=== PATIENT | male | born 1950 | race Caucasian/White ===

== ENCOUNTER 2022-06-13 13:54 | Outpatient (CLI) | payer MEDICARE, BC, SELFPAY ==
[2022-06-13 17:34] LABS: Albumin* 4.8 g/dL (3.3-5.0); Chloride* 91 mmol/L (96-114); Potassium* 4.9 mmol/L (3.6-5.1); Sodium* 130 mmol/L (135-149)
[2022-06-13 17:36] LABS: Cholesterol* 173 mg/dL (90-199)
[2022-06-13 17:37] LABS: Alanine Aminotransferase* 54 U/L (4-50); Alkaline Phosphatase* 75 U/L (40-150); Aspartate Amino Transferase* 40 U/L (12-35); Bilirubin Total* 0.8 mg/dL (0.1-1.5); Blood Urea Nitrogen* 18 mg/dL (7-30); Carbon Dioxide* 30 mmol/L (20-32); Creatinine* 0.9 mg/dL (0.5-1.5); Estimated Glomerular Filt Rate 92 ml/min; Glucose* 105 mg/dL (60-115); Total Protein* 7.8 g/dL (6.0-8.3); Triglycerides* 152 mg/dL (40-149)
[2022-06-13 17:38] LABS: Calcium* 9.5 mg/dL (8.4-10.6); HDL Cholesterol* 69 mg/dL (>=40); LDL Cholesterol Calculated 74 mg/dL (<100)
[2022-06-13 18:08] LABS: PSA Screen* 1.05 ng/mL (0.10-4.00)
== END 2022-06-13 13:55 | disposition home or self-care (01) ==
PROVIDERS: PCP Family Medicine; Visit Provider Family Medicine
DX: Z79.899 Other long term (current) drug therapy (principal); Z00.00 Encounter for general adult medical examination without abnormal findings; E78.5 Hyperlipidemia, unspecified; I10 Essential (primary) hypertension; D12.6 Benign neoplasm of colon, unspecified; Z12.5 Encounter for screening for malignant neoplasm of prostate
CPT/HCPCS: 80053; 80061; 84153

== ENCOUNTER 2022-07-18 09:12 | Outpatient (CLI) | payer MEDICARE, BC, SELFPAY ==
[2022-07-18 10:52] LABS: Chloride* 98 mmol/L (96-114); Sodium* 134 mmol/L (135-149)
[2022-07-18 10:55] LABS: Blood Urea Nitrogen* 15 mg/dL (7-30); Calcium* 9.9 mg/dL (8.4-10.6); Carbon Dioxide* 26 mmol/L (20-32); Creatinine* 0.8 mg/dL (0.5-1.5); Estimated Glomerular Filt Rate 95 ml/min; Glucose* 114 mg/dL (60-115)
== END 2022-07-18 09:13 | disposition home or self-care (01) ==
PROVIDERS: PCP Family Medicine; Visit Provider Family Medicine
DX: E87.1 Hypo-osmolality and hyponatremia (principal); I10 Essential (primary) hypertension
CPT/HCPCS: 80048

== ENCOUNTER 2022-08-10 09:08 | Outpatient (CLI) | payer MEDICARE, BC, SELFPAY ==
--- OUTSIDE RECORDS SUMMARY | 2022-08-10 09:09 | XMS_ITS | Encounter Summary ---
:1950 Author Organization [facility] Address [address] [place] [address] Care Team Providers Name Role Phone Unavailable Primary Care Provider Unavailable Encounter Details Date Type Department Care Team Description 12/23/2020 Orders Only [facility] Estuardo Sinha Jr., M.D. [address] [place] [address] [place], [place] [phone] (Wo rk) Social History Tobacco Use Types Packs/Day Years Used Date Smoking Tobacco: Former Smokeless Tobacco: Former Alcohol Use Standard Drinks/Week Comments Yes 0 (1 standard drink = 0.6 oz pure alcoho l) Sex Assigned at Date Recorded Not on file documented as of this encounter Plan of Treatment Not on filedocumented as of this encounter Visit Diagnoses Not on filedocumented in this encounter
--- OUTSIDE RECORDS SUMMARY | 2022-08-10 09:09 | XMS_ITS | Clinical Summary ---
:1950 Author Organization [facility] Address [address] [place] [address] Care Team Providers Name Role Phone Unavailable Primary Care Provider Unavailable Source Comments Patient records contain information from all sites at [facility]. For routine questions regarding patient records, call [phone] during business hours, M-F 8:00 AM - 5:00 PM Central Time. Record requests for emergency care only can be directed to [phone] at any time.[facility] Allergies No known active allergies Medications Medication Sig Dispensed Refills Start Date End Date Status tadalafiL (CIALIS, Take 20 mg by 0 Active ADCIRCA) 20 mg tablet mouth daily as needed for erectile dysfunction. lisinopriL Take 20 mg by 0 Activ e (PRINIVIL,ZESTRIL) 20 mouth 2 (two) mg tablet times a day. atorvastatin (LIPITOR) Take 20 mg by 0 Active 20 mg tablet mouth at bedtime. sertraline (ZOLOFT) 50 Take 50 mg by 0 Active mg tablet mouth daily. omeprazole (PriLOSEC) Take 20 mg by [address] capsule mouth every morning before breakfast. aspirin [address] Take 81 mg by 0 Active tablet mouth daily. Social History Tobacco Use Types Packs/Day Years Used Date Smoking Tobacco: Former Smokeless Tobacco: Former Alcohol Use Standard Drinks/Week Comments Yes 0 (1 standard drink = 0.6 oz pure alcoho l) Sex Assigned at Date Recorded Not on file Last Filed Vital Signs Vital Sign Reading Time Taken Comments Blood Pressure 145/85 08/11/2020 11:35 AM CDT Pulse 60 08/11/2020 11:35 AM CDT Temperature 36.4 ??C (97.5 ??F) 08/11/2020 10:09 AM CDT Respiratory Rate 12 08/11/2020 11:35 AM CDT Oxygen Saturation 97% 08/11/2020 11:35 AM CDT Inhaled Oxygen Concentration - - Weight 91.8 kg (202 lb 6.1 oz) 08/11/2020 9:56 AM CDT Height 179.8 cm (5' 10.8) 08/11/2020 9:56 AM CDT Body Mass Index 28.39 08/11/2020 9:56 AM CDT Plan of Treatment Health Maintenance Due Date Last Done Comments Abdominal Aortic Aneurysm (AAA) [address] Colonography 1950 Cologuard 1950 Colonoscopy 1950 Colorectal Cancer Screening 1950 Creatinine Level 1952 FIT 1950 Fasting Glucose for Diabetes 1950 Screening Hepatitis C Screening 1950 Potassium Level 1950 Sodium Level 1950 Zoster Vaccines (2 of 3) 08/26/2015 07/01/2015 DTaP,Tdap,and Td Vaccines (1 - 09/08/2017 09/07/2017, 06/16 Tdap) Depression Screening (Annual 10/23/2021 PHQ-2) Fall Risk Screen (Annual) 10/23/2021 COVID-19 Vaccine (5 - Booster for 05/03/2022 03/08/2022, , Pfizer series) 01/16/2021, Additional history exists Influenza Vaccine (#1) 2022 08/13/2021, 08/15/2020, 10/09/2019, Additional history exists Pneumococcal vaccine (65+ years) Completed 09/05/2018, Medical Devices Implanted Type Area Firer Retort Device Shelf Model / Serial Identifier Expiration / Lot Date Lens Ult [id number] Ant +18.0d - Sn/A - [id number] Ocular Left: John 04/08/2023 [id number] / Implanted: Qty: 1 on 07/28/2020 by Ena Sin M.D. at [facility] [employer] N/A / [id number] Lens Ult [id number] Ant +18.0d - Sn/A - [id number] Ocular Right: John 05/07/2023 [id number] / Implanted: Qty: 1 on 08/11/2020 by Ena Sin M.D. at [facility] [employer] N/A / [id number] 1 Insurance Payer Benefit Plan Subscriber ID Effective Phone Address Typ e / Group Dates MEDICARE MEDICARE A [id number] 2017-Pres [address] [place] [address] BLUE CROSS BCBS [employer] [id number] 2020-Pres [phone] [address] X Cost Share BLUE SHIELD BLUE COST ent [phone] [place] [address] Advance Directives For more information, please contact: [phone] Latest Code Status on File Code Status Date Activated Date Inactivated Comments Full Code 08/11/2020 11:32 AM 08/13/2020 2:08 AM Question Answer Comments Full Code: Discussed Code Status History Code Status Date Activated Date Inactivated Comments Full Code 08/11/2020 10:02 AM 08/11/2020 11:32 AM Question Answer Comments Full Code: Discussed Full Code 07/28/2020 12:01 PM 07/28/2020 2:22 PM Question Answer Comments Full Code: Discussed
--- OUTSIDE RECORDS SUMMARY | 2022-08-10 09:09 | XMS_ITS | Encounter Summary ---
:1950 Author Organization [facility] Address [address] [place] [address] Care Team Providers Name Role Phone Unavailable Primary Care Provider Unavailable Encounter Details Date Type Department Care Team Description 07/19/2021 Orders Only [facility] Rehan King, eJnniferOTacos [address] [place] [address] (Wo rk) Social History Tobacco Use Types [...]
--- OUTSIDE RECORDS SUMMARY | 2022-08-10 09:10 | XMS_ITS | Encounter Summary ---
:1950 Author Organization [facility] Address [address] [place] [address] Care Team Providers Name Role Phone Unavailable Primary Care Provider Unavailable Encounter Details Date Type Department Care Team Description 07/28/2020 Surgery [facility] OR Ena Gilbert PHACOEMULSIFICATION CATARACT [address] M[address] WITH INTRAOCULAR LENS [place], [place] [address] IMPLANTATION [address] [place], [place] [phone] [address] Social History Tobacco Use Types Packs/Day Years Used Date Smoking Tobacco: Former Smokeless Tobacco: Former Alcohol Use Standard Drinks/Week Comments Yes 0 (1 standard drink = 0.6 oz pure alcoho l) Sex Assigned at Date Recorded Not on file documented as of this encounter Last Filed Vital Signs Vital Sign Reading Time Taken Comments Blood Pressure 147/77 07/28/2020 12:10 PM CDT Pulse 56 07/28/2020 12:15 PM CDT Temperature 36 ??C (96.8 ??F) 07/28/2020 12:06 PM CDT Respiratory Rate 20 07/28/2020 12:15 PM CDT Oxygen Saturation 97% 07/28/2020 12:15 PM CDT Inhaled Oxygen Concentration - - Weight 89.9 kg (198 lb 3.1 oz) 07/28/2020 10:17 AM CDT Height - - Body Mass Index - - documented in this encounter Discharge Instructions Discharge InstructionsMathew Da Silva R.N. - 07/28/2020 10:44 AM CDT Images from the original note were not included. Cataract Surgery ?? No lifting, bending, straining or eye rubbing. Keep head up. ?? If you should develop severe eye pain or headache pain call your doctor. ?? Give drops today as directed by physician. (all 3 drops today, 3 more times) [facility] [phone] Anesthesia Discharge Instructions Adult - Outpatient After sedation After you have been sedated, it is common to have lapses of memory, slowed reaction time and impaired judgment. Arrange for someone to accompany you to and from your appointment and drive you home. Youmay need this person to help you at home as well. ?? Rest. ?? Do not drive or operate motorized vehicles or equipment. ?? Do not return to work or school. ?? Do not take on responsibility for children or anyone who depends on your care. ?? Do not use exercise equipment or take part in rough play or sports. ?? Do not drink alcoholic beverages. Medication Do not take any medications that are unknown to your surgeon. If your pain is not controlled, notifyyour surgeon. In addition, because you were given: ?? Monitored anesthesia care (MAC) with local..you may have: Numbness in the affected area. Until the numbness wears off, you will not be able to feel heat, cold, or pressure like normal. Protect the extremity from these sensations. Notify your physician if you have numbness or tingling that lasts longer than 24 hours. This material is for your education and information only. This content does not replace medical advice, diagnosis or treatment. New medical research may change this information. If you have questions about a medical condition, always talk with your health care provider. documented in this encounter Medications at Time of Discharge Medication Sig Dispensed Refills Start Date End Date aspirin [address] tablet Take 81 mg by mouth 0 daily. atorvastatin (LIPITOR) 20 Take 20 mg by mouth 0 mg tablet at bedtime. lisinopriL Take 20 mg by mouth 2 0 (PRINIVIL,ZESTRIL) 20 mg (two) times a day. tablet omeprazole (PriLOSEC) 20 Take 20 mg by mouth [address] capsule every morning before breakfast. sertraline (ZOLOFT) 50 mg Take 50 mg by mouth 0 tablet daily. tadalafiL (CIALIS, Take 20 mg by mouth 0 ADCIRCA) 20 mg tablet daily as needed for erectile dysfunction. documented as of this encounter H&P Notes Ena Gilbert M.D. - 07/28/2020 10:54 AM CDT INTERVAL HISTORY AND PHYSICAL PRE-PROCEDURE UPDATE H&P reviewed. The patient was examined and there are no significant changes to the H&P. Ena Gilbert M.D. Source Note - Timothy, Default Authenticator - 07/24/2020 10:27 AM CDT documented in this encounter OR Notes Op Note - Ena Gilbert M.D. - 07/28/2020 11:49 AM CDT FULL OP NOTE Procedure(s) (LRB): PHACOEMULSIFICATION CATARACT WITH INTRAOCULAR LENS IMPLANTATION (Left) Surgeon(s) and Role: * Ena Gilbert M.D. - Primary Anesthesia Type Moderate sedation (rn) Pre-operative Diagnosis Cataract Visually significant nuclear sclerotic cataract of the left eye Post-operative Diagnosis Pseudophakia, Left eye Findings As expected. Complications None Description of Procedure After informed written consent was obtained, the patient was brought into the operating room and placed in the supine position. The appropriate leads and monitors were placed by the anesthesia team andmonitored anesthesia care was induced. Tetracaine was instilled into the operative eye, and the patient was then prepped and draped in the usual sterile fashion. A time-out was performed to ensure the correct patient and eye were confirmed by all present in the operating room. An eyelid speculum was placed. Using a 1.0 mm sideport blade, a paracentesis was performed 60 degrees temporal to the planned temporal incision. Approximately 0.5 cc of 1% preservative free epi-Shugarcaine was then injected into the anterior chamber. A cohesive and dispersive viscoelastic were injected into the anterior chamber using an Arshinoff shell technique. A 2.75 mm keratome was then used to make the temporal incision. A cystotome and uttrata forceps were used to create a continuous curvilinear capsulorrhexis. Hydrodissection was performed to free the nucleus from the capsule and the nucleusrotated freely within the capsule. Using a chopping technique, phacoemulsification was performed to e mulsify the nucleus. The irrigation/aspiration handpiece was then used to remove the remaining cortical material. Using a peg squeegee, the capsular bag was polished. The bag was then filled with viscoelastic and the intraocular lens was injected into the capsule and rotated into position. The irrigation/aspiration handpiece was then used to remove the remaining viscoelastic. The wound was hydratedwith balanced salt solution. 0.05 ml of moxifloxacin was injected into the anterior chamber. At the conclusion of the case the wound was watertight, the pupil was round, the IOL was centered and the anterior chamber was deep and formed. Antibiotic and steroid eye drops were placed in the operative eye, the lid speculum and drapes were removed, and a protective shield was taped over the operative eye.The patient then left the operating room in stable condition. Specimens None Drains None Estimated Blood Loss None Implants Implant Name Type Inv. Item Serial No. Nutrition Services Worker Lot No. LRB No. Used Action LENS ULT [id number] ANT +18.0D - SN/A - [id number] Ocular Lens LENS ULT [id number] ANT +18.0D N/A [employer] [id number] Left 1 Implanted Ena Gilbert M.D. documented in this encounter Plan of Treatment Not on filedocumented as of this encounter Procedures Procedure Name Priority Date/Time Associated Comments Diagnosis PHACOEMULSIFICATION CATARACT 07/28/2020 11:39 AM Catar act WITH INTRAOCULAR LENS CDT IMPLANTATION ADULT OXYGEN THERAPY Routine 07/28/2020 10:12 AM CDT documented in this encounter Visit Diagnoses Not on filedocumented in this encounter Administered Medications Inactive Administered Medications - up to 3 most recent administrations Medication Order MAR Action Action Date Dose Rate Site acetaminophen tablet 650 mg (TYLENOL) 650 mg, oral, Once as needed, mild pain or score 1-3 of 10, moderate pain or score 4-6 of 10, Starting on Mon07/28/20 at 1201, For 1 dose cyclopentolate 1 % ophthalmic solution 1 Given 07/28/2020 10:34 AM CDT 1 drop drop (CYCLOGYL) 1 drop, left eye, Every 5 min, First dose on Mon07/28/20 at 1015, For 3 doses, Pre-Op, in operative eye Given 07/28/2020 10:28 AM CDT 1 drop Given 07/28/2020 10:23 AM CDT 1 drop EPINEPHrine 0.5 mg in balanced salt Given 07/28/2020 11:55 AM CD T 500 mL Left Eye solution 500 mL ophthalmic irrigation As needed, Starting on Mon07/28/20 at 1155, Intra-Op flumazeniL injection 0.2 mg (ROMAZICON) 0.2 mg, intravenous, Once as needed, rev ersal, Starting on Mon07/28/20 at 1012, For 1 dose, Intra-Op, Administer once if pat ient has a RASS score of -4, -5 and has a respiratory rate less than 8 breaths/minute. lactated ringers 20 mL/hr, intravenous, Continuous, Starting on 04/11 at 1015, Intra-Op lidocaine (PF) 0.75 mL, balanced salt solution Given 1 11:56 AM CDT 1 mL 2.25 mL, EPINEPHrine (PF) 1 mL 4 mL solution (SHUGARCAINE) As needed, Starting on Mon07/28/20 at 1156, Intra-Op midazolam (PF) injection (VERSED) Given 07/28/2020 11:46 AM CDT 0.5 mg Code/trauma/sedation medication, Starting on Mon07/28/20 at 1146 midazolam (PF) injection 0.5 mg (VERSED) 0.5 mg, intravenous, Once as needed, sed ation, Starting on Mon07/28/20 at 1012, For 1 dose, Intra-Op midazolam (PF) injection 0.5 mg (VERSED) 0.5 mg, intravenous, Every 2 min PRN, se dation, RASS -1, Starting on Mon07/28/20 at 1012, Intra-Op, May repeat every 2 minut es for a maximum of 2 mg. Do not give if respiratory rate is less than 8 breaths/minute. moxifloxacin 0.5 % ophthalmic Given 07/28/2020 12:01 PM CDT 0.05 mL Left Eye solution (VIGAMOX) As needed, Starting on Mon07/28/20 at 1201, Intra-Op naloxone injection 0.2 mg (NARCAN) 0.2 mg, intravenous, As needed, respirat ory depression, Starting on Mon07/28/20 at 1201, For RASS Score -4 or less, respiratory rate of l ess than 8 breaths/min. Notify provider/service and rapid response team (if av ailable at institution). phenylephrine 2.5 % ophthalmic solution 1 Given 07/28/2020 10:34 AM CDT 1 drop drop (MYDFRIN) 1 drop, left eye, Every 5 min, First dose on Mon07/28/20 at 1015, For 3 doses, Pre-Op, in operative eye Given 07/28/2020 10:28 AM CDT 1 drop Given 07/28/2020 10:23 AM CDT 1 drop sodium chloride 0.9 % injection 10 mL 10 mL, intravenous, As needed, line care, Starting on Mon07/28/20 at 1012, Intra-Op, Peripheral Intravenous Catheter and Rapid In fusion Catheter, prior to blood sampling, post blood transfusion or post blood s ampling sodium chloride 0.9 % injection 3 mL 3 mL, intravenous, As needed, line care, Starting on Mon07/28/20 at 1012, Intra-Op, Prior to and following infusion and betw een multiple consecutive infusions: sodium chloride 0.9 % injection sodium chloride 0.9 % injection 3 mL 3 mL, intravenous, Every 12 hours scheduled, First dos e on Mon07/28/20 at 2100, Intra-Op, Peripheral Intravenous Catheter and Rapid In fusion Catheter, when no infusion to maintain patency tetracaine (PF) 0.5 % ophthalmic Given 07/28/2020 11:42 AM CDT 2 drops Left Eye solution (ALTACAINE) As needed, Starting on Mon07/28/20 at 1140, Intra-Op Given 07/28/2020 11:41 AM CDT 2 drops Left Eye Given 07/28/2020 11:40 AM CDT 2 drops Left Eye documented in this encounter Active and Recently Administered Medications Times are shown in CDT. Scheduled Medication Order 07/26/2020 07/27/2020 07/28/2020 cyclopentolate 1 % ophthalmic solution 1 drop (CYCLOGYL) ([facility]O) 1023 (Given - Provider: Puja Horan R.N.)1028 (Given - Provider: Puja Horan R.N.)1034 (Given - Provider: Puja Horan R.N.) 1 drop, left eye, Every 5 min, First dos e on Mon07/28/20 at 1015, For 3 doses, Pre-Op, in operative eye phenylephrine 2.5 % ophthalmic solution 1 drop (MYDFRIN) ([facility] SIL[facility]) 1023 (Given - Provider: Puja Horan R.N.)1028 (Given - Provider: Puja Horan R.N.)1034 (Given - Provider: Puja Horan R.N.) 1 drop, left eye, Every 5 min, First dos e on Mon07/28/20 at 1015, For 3 doses, Pre-Op, in operative eye sodium chloride 0.9 % injection 3 mL 3 mL, intravenous, Every 12 hours schedu led, First dose on Mon07/28/20 at 2100, Intra-Op, Peripheral Intravenous Catheter and Rapid Infusion Catheter, when no infusion to maintain patency Continuous Medication Order 07/26/2020 07/27/2020 07/28/2020 lactated ringers 1015 (Due) 20 mL/hr, intravenous, Continuous, Starting on Mon07/28/20 at 10 15, Intra-Op PRN Medication Order 07/26/2020 07/27/2020 07/28/2020 acetaminophen tablet 650 mg (TYLENOL) 650 mg, oral, Once as needed, mild pain or score 1-3 of 10, moderate pain or score 4-6 of 10, Starting on Mon07/28/20 at 1201, For 1 dose EPINEPHrine 0.5 mg in balanced salt solu tion 500 mL ophthalmic irrigation (CANCELED) 1155 (Given - Provid er: Ena Gilbert M.D.) As needed, Starting on Mon07/28/20 at 1155, Intra-Op flumazeniL injection 0.2 mg (ROMAZICON) 0.2 mg, intravenous, Once as needed, rev ersal, Starting on Mon07/28/20 at 1012, For 1 dose, Intra-Op, Administer once if patient has a RASS score of -4, -5 and has a respiratory rate less than 8 breaths/minute. lidocaine (PF) 0.75 mL, balanced salt so lution 2.25 mL, EPINEPHrine (PF) 1 mL 4 mL solution (SHUGARCAINE) (CANCELED) 115 6 (Given - Provider: Ena Gilbert M.D.) As needed, Starting on Mon07/28/20 at 1156, Intra-Op midazolam (PF) injection (VERSED) (COMPLETED) 1146 (Given - Provider: Gabby Shannon R.N.) Code/trauma/sedation medication, Starting on Mon07/28/20 at 1146 midazolam (PF) injection 0.5 mg (VERSED) 0.5 mg, intravenous, Once as needed, sed ation, Starting on Mon07/28/20 at 1012, For 1 dose, Intra-Op midazolam (PF) injection 0.5 mg (VERSED) 0.5 mg, intravenous, Every 2 min PRN, se dation, RASS -1, Starting on Mon07/28/20 at 1012, Intra-Op, May repeat every 2 minutes for a maximum of 2 mg. Do not give if respiratory rate is less than 8 breaths/minute. moxifloxacin 0.5 % ophthalmic solution (VIGAMOX) (CANCELED) 1201 (Given - Provider: Ena Gilbert M.D.) As needed, Starting on Mon07/28/20 at 1201, Intra-Op naloxone injection 0.2 mg (NARCAN) 0.2 mg, intravenous, As needed, respirat ory depression, Starting on Mon07/28/20 at 1201, For RASS Score -4 or less, respiratory rate of less than 8 breaths/min. Notify provider/service and rapid response team (if available at institution). sodium chloride 0.9 % injection 10 mL 10 mL, intravenous, As needed, line care , Starting on Mon07/28/20 at 1012, Intra-Op, Peripheral Intravenous Catheter and Rapid Infusion Catheter, prior to blood sampling, post blood transfusion or post blood sampling sodium chloride 0.9 % injection 3 mL 3 mL, intravenous, As needed, line care, Starting on Mon07/28/20 at 1012, Intra- Op, Prior to and following infusion and between multiple consecutive infusions: sodium chloride 0.9 % injection tetracaine (PF) 0.5 % ophthalmic solution (ALTACAINE) (CANCELED) 1140 (Given - Provider: Ena Gilbert M.D.)1141 (Given - Provider: Ena Gilbert M.D.)1142 (Given - Provider: Ena Gilbert M.D.) As needed, Starting on Mon07/28/20 at 1140, Intra-Op documented in this encounter
--- OUTSIDE RECORDS SUMMARY | 2022-08-10 09:10 | XMS_ITS | Encounter Summary ---
:1950 Author Organization [facility] Address [address] [place] [address] Care Team Providers Name Role Phone Unavailable Primary Care Provider Unavailable Encounter Details Date Type Department Care Team Description 08/08/2020 Hospital Encounter Department of Ena Gilbert For Laboratory Medicine, S, M.D. Screening For Other [facility], in [address] [facility] Viral Diseases [place], [place] (COVID-19) [address] [address] [place] [phone] [place], [place] (Work) [address] Social History Tobacco Use Types Packs/Day Years Used Date Smoking Tobacco: Former Smokeless Tobacco: Former Alcohol Use Standard Drinks/Week Comments Yes 0 (1 standard drink = 0.6 oz pure alcoho l) Sex Assigned at Date Recorded Not on file documented as of this encounter Medications at Time of Discharge [...] erectile dysfunction. documented as of this encounter Plan of Treatment Not on filedocumented as of this encounter Procedures Procedure Name Priority Date/Time Associated Diagnosis Comme nts SARS CORONAVIRUS-2 Routine 08/08/2020 9:41 AM Encounter For Re sults for this RNA, V CDT Screening For Other procedur e are in Viral Diseases the results (COVID-19) section. documented in this encounter Results SARS Coronavirus-2 RNA, V Asymptomatic (08/08/2020 9:41 AM CDT) [facility] Method Time Signature SARS-CoV-2 Swab, 08/08/2020 [facility] Specimen Nasopharynx 6:36 PM CDT Source SARS CoV-2 Undetected Undetected 08/08/2020 [facility] RNA, TMA 6:36 PM CDT Comment: SARS-CoV-2 RNA absent. This result does not rule out COVID-19 in the patient, as the sensitivity of the test depends o n the timing of the specimen collection and the quality of the specim en. Result should be correlated with patient's history and clinical presentat ion. ----ADDITIONAL INFORMATION---- This test is performed using the Aptima SARS-CoV-2 assay ([employer] which has received Emergency Use Authori zation (EUA) by the U.S. Food and Drug Administration. Fact sheets for this Emergency Use Autho rization (EUA) assay can be found at the following links: For Healthcare Providers: https://www.fd a.gov/media/364830/download For Patients: https://www.fda.gov/media/ 273281/download Specimen Anatomical Collection Method Collection Time Receive d Time (Source) Location / / Volume Laterality Varies 08/08/2020 9:41 AM 0 (Nasopharynx) CDT 12:20 PM CDT Ena Gilbert M.D. LAB MICROBIOLOGY - GENERAL O RDERABLES Performing Organization Address City/State/ZIP Code Phon e Number [facility]- [address] [place] [phone] [place] [address] [place] [address] System in [address] documented in this encounter Visit Diagnoses Diagnosis Encounter For Screening For Other Viral Diseases (COVID-19) documented in this encounter Additional Health Concerns Infection Onset Date Last Indicated Resolved Time COVID19 Pending 08/08/2020 08/08/2020 08/08/2020 6:37 PM CDT documented as of this encounter
--- OUTSIDE RECORDS SUMMARY | 2022-08-10 09:10 | XMS_ITS | Encounter Summary ---
:1950 Author Organization [facility] Address [address] [place] [address] Care Team Providers Name Role Phone Unavailable Primary Care Provider Unavailable Encounter Details Date Type Department Care Team Description 07/28/2020 Hospital Encounter [facility] OR Ena Gilbert, [address] [facility] [place] [address] [facility] [phone] [place] [phone] (Wo rk) Social History Tobacco Use Types [...] today, 3 more times) [facility] [phone] Anesthesia Discharge Instructions Adult - Outpatient After [...] Implant Name Type Inv. Item Serial No. Eyelet Operator Lot No. LRB No. Used Action LENS ULT [id number] ANT +18.0D - SN/A - [id number] Ocular Lens LENS ULT [id number] ANT +18.0D N/A [employer] [id number] Left 1 Implanted Ena Gilbert M.D. documented [...] Given 07/28/2020 10:23 AM CDT 1 drop flumazeniL injection 0.2 mg (ROMAZICON) 0.2 mg, intravenous, Once as needed, rev ersal, Starting on Mon07/28/20 at 1012, For 1 dose, Intra-Op, Administer once if pat ient has a RASS score of -4, -5 and has a respiratory rate less than 8 breaths/minute. lactated ringers 20 mL/hr, intravenous, Continuous, Starting on 04/11 at 1015, Intra-Op midazolam (PF) injection (VERSED) Given 07/28/2020 [...] respiratory rate is less than 8 breaths/minute. naloxone injection 0.2 mg (NARCAN) 0.2 mg, [...] intravenous, As needed, line care, Starting on 07/28/20 at 1012, Intra-Op, Peripheral Intravenous Catheter and [...] Catheter, when no infusion to maintain patency documented in this encounter Active and Recently Administered Medications Times are shown in CDT. Scheduled Medication Order 07/26/2020 07/27/2020 07/28/2020 cyclopentolate 1 % ophthalmic solution 1 drop (CYCLOGYL) (COMPLE SILVANO) 1023 (Given - Provider: Puja Horan R.N.)1028 (Given - Provider: Puja Horan R.N.)1034 (Given - Provider: Puja Horan R.N.) 1 drop, left eye, Every 5 min, First dos e on 07/28/20 at 1015, For 3 doses, Pre-Op, in operative eye phenylephrine 2.5 % ophthalmic solution 1 drop (MYDFRIN) (COMPLE SILVANO) 1023 (Given - Provider: Puja Horan R.N.)1028 (Given - Provider: Puja Horan R.N.)1034 (Given - Provider: Puja Horan R.N.) 1 drop, left eye, Every 5 min, First dos e on 07/28/20 at 1015, For 3 doses, Pre-Op, in [...]
--- OUTSIDE RECORDS SUMMARY | 2022-08-10 09:10 | XMS_ITS | Encounter Summary ---
:1950 Author Organization [facility] Address [address] [place] [address] Care Team Providers Name Role Phone Unavailable Primary Care Provider Unavailable Encounter Details Date Type Department Care Team Description 08/11/2020 Surgery [facility] Ena Gilbert PHACOEMULSIFICATION CATARACT [address] M[address]D. WITH INTRAOCULAR LENS [place], [place] [address] IMPLANTATION [id number] [place], [place] [phone] [address] Social History Tobacco Use Types Packs/Day [...] Mass Index 28.39 08/11/2020 9:56 AM CDT documented in this encounter Discharge Instructions Discharge InstructionsCindy Sweet R.N. - 08/11/2020 11:37 AM CDT Images from the original note were not included. Caring for your Eye Please administer 1 drop from your combination prescription eye drop bottle 3 more times today. Keep shield on at all times during the day and overnight except for when administering the eye drops Do not rub the eye. Avoid heavy lifting (>15 pounds), bending at the waist (keep your head above your heart), or straining (anything that elevates your heart rate or turns you red in the face). Call [facility] ([phone]) with severe pain or loss of vision. Follow up tomorrow morning as scheduled for your first post operative appointment Anesthesia Discharge Instructions Adult - Outpatient After [...] your pain is not controlled, notifyyour surgeon. This material is for your education and information only. This content does not replace medical advice, diagnosis or treatment. New medical research may change this information. If you have questions about a medical condition, always talk with your health care provider. documented in this encounter Medications at Time of Discharge Medication Sig Dispensed Refills Start Date End Date atorvastatin (LIPITOR) 20 Take 20 mg by mouth 0 mg tablet at bedtime. lisinopriL Take 20 mg by mouth 2 0 (PRINIVIL,ZESTRIL) 20 mg (two) times a day. tablet omeprazole (PriLOSEC) 20 Take 20 mg by mouth [address] capsule every morning before breakfast. sertraline (ZOLOFT) 50 mg Take 50 mg by mouth 0 tablet daily. aspirin [address] tablet Take 81 mg by mouth 0 daily. tadalafiL (CIALIS, Take 20 mg by mouth 0 ADCIRCA) 20 mg tablet daily as needed for erectile dysfunction. documented as of this encounter H&P Notes Ena Gilbert M.D. - 08/11/2020 10:35 AM CDT INTERVAL HISTORY AND PHYSICAL PRE-PROCEDURE UPDATE H&P reviewed. The patient was examined and there are no significant changes to the H&P. Ena Gilbert M.D. Source Note - Timothy, Default Authenticator - 07/24/2020 10:27 AM CDT documented in this encounter OR Notes Op Note - Ena Gilbert M.D. - 08/11/2020 11:19 AM CDT FULL OP NOTE Procedure(s) (LRB): PHACOEMULSIFICATION CATARACT WITH INTRAOCULAR LENS IMPLANTATION (Right) Surgeon(s) and Role: * Ena Gilbert M.D. - Primary Anesthesia Type Moderate sedation (rn) Pre-operative Diagnosis Visually significant nuclear sclerotic cataract of the right eye Post-operative Diagnosis Pseudophakia, right eye Findings As expected. Complications None Description [...] Implant Name Type Inv. Item Serial No. Diesel Mechanic Lot No. LRB No. Used Action LENS ULT [id number] ANT +18.0D - SN/A - [id number] Ocular Lens LENS ULT [id number] ANT +18.0D N/A [employer] [id number] Right 1 Implanted Ena Gilbert M.D. documented in this encounter Plan of Treatment Not on filedocumented as of this encounter Procedures Procedure Name Priority Date/Time Associated Comments Diagnosis PHACOEMULSIFICATION CATARACT 08/11/2020 11:10 AM Catar act WITH INTRAOCULAR LENS CDT IMPLANTATION ADULT OXYGEN THERAPY Routine 08/11/2020 10:02 AM CDT documented in this encounter Visit Diagnoses Not on filedocumented in this encounter Administered Medications Inactive Administered Medications - up to 3 most recent administrations Medication Order MAR Action Action Date Dose Rate Site acetaminophen tablet 650 mg (TYLENOL) 650 mg, oral, Once as needed, mild pain or score 1-3 of 10, moderate pain or score 4-6 of 10, Starting on Mon08/11/20 at 1131, For 1 dos e cyclopentolate 1 % ophthalmic solution 1 Given 08/11/2020 10:22 AM CDT 1 drop drop (CYCLOGYL) 1 drop, right eye, Every 5 min, First dose on Mon08/11/20 at 1015, For 3 doses, Pre-Op, in operative eye, Indications: perioperative mydriasis Given 08/11/2020 10:16 AM CDT 1 drop Given 08/11/2020 10:11 AM CDT 1 drop EPINEPHrine 0.5 mg in balanced salt Given 08/11/2020 11:20 AM CD T 500 mL Right Eye solution 500 mL ophthalmic irrigation As needed, Starting on Mon08/11/20 at 1120, Intra-Op flumazeniL injection 0.2 mg (ROMAZICON) 0.2 mg, intravenous, Once as needed, rev ersal, Starting on Mon08/11/20 at 1002, For 1 dose, Intra-Op, Administer once if patient has a RASS score of -4, -5 and has a respiratory rate less than 8 breaths/minute. lactated ringers New Bag 08/11/2020 10:22 AM CDT 20 mL/hr 20 mL/hr 20 mL/hr, intravenous, Continuous, Starting on Mon08/11/20 at 1015, Intra-Op lidocaine (PF) 0.75 mL, balanced salt Given 08/11/2020 11:20 AM CDT 1 mL Right Eye solution 2.25 mL, EPINEPHrine (PF) 1 mL 4 mL solution (SHUGARCAINE) As needed, Starting on Mon08/11/20 at 1120, Intra-Op midazolam (PF) injection (VERSED) Given 08/11/2020 11:16 AM CDT 0.5 mg Code/trauma/sedation medication, Starting on Mon08/11/20 at 1116 midazolam (PF) injection 0.5 mg (VERSED) 0.5 mg, intravenous, Every 2 min PRN, se dation, RASS -1, Starting on Mon08/11/20 at 1002, Intra-Op, May repeat every 2 mi nutes for a maximum of 2 mg. Do not give if respiratory rate is less than 8 breaths/minute. moxifloxacin 0.5 % ophthalmic Given 08/11/2020 11:20 AM CDT 0.05 mL Right Eye solution (VIGAMOX) As needed, Starting on Mon08/11/20 at 1120, Intra-Op naloxone injection 0.2 mg (NARCAN) 0.2 mg, intravenous, As needed, respirat ory depression, Starting on Mon08/11/20 at 1131, For RASS Score -4 or less, respiratory rate of l ess than 8 breaths/min. Notify provider/service and rapid response team (if av ailable at institution). phenylephrine 2.5 % ophthalmic solution 1 Given 08/11/2020 10:22 AM CDT 1 drop drop (MYDFRIN) 1 drop, right eye, Every 5 min, First dose on Mon08/11/20 at 1015, For 3 doses, Pre-Op, in operative eye, Indications: mydriasis Given 08/11/2020 10:16 AM CDT 1 drop Given 08/11/2020 10:11 AM CDT 1 drop sodium chloride 0.9 % injection 10 mL 10 mL, intravenous, As needed, line care , Starting on Mon08/11/20 at 1002, Pre-Op, Peripheral Intravenous Catheter and Rapid Infusion Cat heter, prior to blood sampling, post blood transfusion or post blood samplin g sodium chloride 0.9 % injection 3 mL 3 mL, intravenous, As needed, line care, Starting on Mon08/11/20 at 1002, Pre-Op, Prior to and following infusion and betw een multiple consecutive infusions: sodium chloride 0.9 % injection sodium chloride 0.9 % injection 3 mL 3 mL, intravenous, Every 12 hours schedu led, First dose on Mon08/11/20 at 2100, Pre-Op, Peripheral Intravenous Catheter and Rapid Infu patsy Catheter, when no infusion to maintain patency tetracaine (PF) 0.5 % ophthalmic Given 08/11/2020 11:15 AM CDT 1 drop Right Eye solution (ALTACAINE) As needed, Starting on Mon08/11/20 at 1110, Intra-Op Given 08/11/2020 11:12 AM CDT 1 drop Righ t Eye Given 08/11/2020 11:10 AM CDT 1 drop Righ t Eye documented in this encounter Active and Recently Administered Medications Times are shown in CDT. Scheduled Medication Order 08/09/2020 08/10/2020 08/11/2020 cyclopentolate 1 % ophthalmic solution 1 drop (CYCLOGYL) (COMPLE SILVANO) 1011 (Given - Provider: Ce Tan R.N.)1016 (Given - Provider: Ce Tan R.N.)1022 (Given - Provider: Ce Tan R.N.) 1 drop, right eye, Every 5 min, First do se on e 08/11/20 at 1015, For 3 doses, Pre-Op, in operative eye, Indications: perioperative mydriasis phenylephrine 2.5 % ophthalmic solution 1 drop (MYDFRIN) (COMPLE SILVANO) 1011 (Given - Provider: Ce Tan R.N.)1016 (Given - Provider: Ce Tan R.N.)1022 (Given - Provider: Ce Tan R.N.) 1 drop, right eye, Every 5 min, First do se on 08/11/20 at 1015, For 3 doses, Pre-Op, in operative eye, Indications: mydriasis sodium chloride 0.9 % injection 3 mL 2100 (Due) 3 mL, intravenous, Every 12 hours schedu led, First dose on Mon08/11/20 at 2100, Pre-Op, Peripheral Intravenous Catheter and Rapid Infusion Catheter, when no infusion to maintain patency Continuous Medication Order 08/09/2020 08/10/2020 08/11/2020 lactated ringers 1022 (New Bag - Provider: Ce Tan R.N.) 20 mL/hr, intravenous, Continuous, Starting on Mon08/11/20 at 1 015, Intra-Op PRN Medication Order 08/09/2020 08/10/2020 08/11/2020 acetaminophen tablet 650 mg (TYLENOL) 650 mg, oral, Once as needed, mild pain or score 1-3 of 10, moderate pain or score 4-6 of 10, Starting on Mon08/11/20 at 1131, For 1 dose EPINEPHrine 0.5 mg in balanced salt solu tion 500 mL ophthalmic irrigation (CANCELED) 1120 (Given - Provid er: Ena Gilbert M.D.) As needed, Starting on Mon08/11/20 at 1120, Intra-Op flumazeniL injection 0.2 mg (ROMAZICON) 0.2 mg, intravenous, Once as needed, rev ersal, Starting on Mon08/11/20 at 1002, For 1 dose, Intra-Op, Administer once if patient has a RASS score of -4, -5 and has a respiratory rate less than 8 breaths/minute. lidocaine (PF) 0.75 mL, balanced salt so lution 2.25 mL, EPINEPHrine (PF) 1 mL 4 mL solution (SHUGARCAINE) (CANCELED) 112 0 (Given - Provider: Ena Gilbert M.D.) As needed, Starting on Mon08/11/20 at 1120, Intra-Op midazolam (PF) injection (VERSED) (COMPLETED) 1116 (Given - Provider: Zulema Newman R.N.) Code/trauma/sedation medication, Starting on Mon08/11/20 at 111 6 midazolam (PF) injection 0.5 mg (VERSED) 0.5 mg, intravenous, Every 2 min PRN, se dation, RASS -1, Starting on Mon08/11/20 at 1002, Intra-Op, May repeat every 2 minutes for a maximum of 2 mg. Do not give if respiratory rate is less than 8 breaths/minute. moxifloxacin 0.5 % ophthalmic solution (VIGAMOX) (CANCELED) 1120 (Given - Provider: Ena Gilbert M.D.) As needed, Starting on Mon08/11/20 at 1120, Intra-Op naloxone injection 0.2 mg (NARCAN) 0.2 mg, intravenous, As needed, respirat ory depression, Starting on Mon08/11/20 at 1131, For RASS Score -4 or less, respiratory rate of less than 8 breaths/min. Notify provider/service and rapid response team (if available at institution). sodium chloride 0.9 % injection 10 mL 10 mL, intravenous, As needed, line care , Starting on Mon08/11/20 at 1002, Pre- Op, Peripheral Intravenous Catheter and Rapid Infusion Catheter, prior to blood sampling, post blood transfusion or post blood sampling sodium chloride 0.9 % injection 3 mL 3 mL, intravenous, As needed, line care, Starting on Mon08/11/20 at 1002, Pre- Op, Prior to and following infusion and between multiple consecutive infusions: sodium chloride 0.9 % injection tetracaine (PF) 0.5 % ophthalmic solution (ALTACAINE) (CANCELED) 111 (Given - Provider: Ena Gilbert M.D.)111 (Given - Provider: Ena Gilbert M.D.)1115 (Given - Provider: Ena Gilbert M.D.) As needed, Starting on Mon08/11/20 at 1110, Intra-Op documented in this encounter
--- OUTSIDE RECORDS SUMMARY | 2022-08-10 09:10 | XMS_ITS | Encounter Summary ---
:1950 Author Organization [facility] Address [address] [place] [address] Care Team Providers Name Role Phone Unavailable Primary Care Provider Unavailable Encounter Details Date Type Department Care Team Description 08/11/2020 Hospital Encounter [facility] OR Ena Gilbert, [address] [facility] [place] [address] 2009 [facility] [phone] [place] [phone] (Wo rk) Social History Tobacco Use Types [...] red in the face). Call [facility] ([phone]) with severe pain or loss of vision. [...] Implant Name Type Inv. Item Serial No. Manufacturing Quality Inspector Lot No. LRB No. Used Action LENS ULT [id number] ANT +18.0D - SN/A - [id number] Ocular Lens LENS ULT [id number] ANT +18.0D N/A [employer] [id number] Right 1 Implanted Ena Gilbert M.D. documented [...] eye, Every 5 min, First dose on 08/11/20 at 1015, For 3 doses, Pre-Op, in operative eye, Indications: perioperative mydriasis Given 08/11/2020 10:16 AM CDT 1 drop Given 08/11/2020 10:11 AM CDT 1 drop flumazeniL injection 0.2 mg (ROMAZICON) 0.2 mg, intravenous, Once as needed, rev ersal, Starting on e 08/11/20 at 1002, For 1 dose, Intra-Op, Administer once if patient has a RASS score of -4, -5 and has a respiratory rate less than 8 breaths/minute. lactated ringers New Bag 08/11/2020 10:22 AM CDT 20 mL/hr 20 mL/hr 20 mL/hr, intravenous, Continuous, Starting on e 08/11/20 at 1015, Intra-Op midazolam (PF) injection (VERSED) Given 08/11/2020 11:16 AM CDT 0.5 mg Code/trauma/sedation medication, Starting on e 08/11/20 at 1116 midazolam (PF) injection 0.5 mg (VERSED) 0.5 mg, intravenous, Every 2 min PRN, se dation, RASS -1, Starting on e 08/11/20 at 1002, Intra-Op, May repeat every 2 mi nutes for a maximum of 2 mg. Do not give if respiratory rate is less than 8 breaths/minute. naloxone injection 0.2 mg (NARCAN) 0.2 mg, intravenous, As needed, respirat ory depression, Starting on e 08/11/20 at 1131, For RASS Score -4 or less, respiratory rate of l ess than 8 breaths/min. Notify provider/service and rapid response team (if av ailable at institution). phenylephrine 2.5 % ophthalmic solution 1 Given 08/11/2020 10:22 AM CDT 1 drop drop (MYDFRIN) 1 drop, right eye, Every 5 min, First dose on 08/11/20 at 1015, For 3 doses, [...] Provider: Ce Tan R.N.)1022 (Given - Provider: Guerita Tobias.N.) 1 drop, right eye, Every 5 min, First do se on Mon08/11/20 at 1015, For 3 doses, Pre-Op, in operative eye, Indications: perioperative mydriasis phenylephrine 2.5 % ophthalmic solution 1 drop (MYDFRIN) (COMPLE SILVANO) 1011 (Given - Provider: Ce Tan R.N.)1016 (Given - Provider: Guerita Tobias.N.)1022 (Given - Provider: Guerita Tobias.N.) 1 drop, right eye, Every 5 min, [...] (PF) 0.5 % ophthalmic solution (ALTACAINE) (CANCELED) 1110 (Given - Provider: Ena Gilbert M.D.)1112 (Given - Provider: Ena Gilbert M.D.)1115 (Given - Provider: Ena Gilbert M.D.) As needed, Starting on Mon08/11/20 at 1110, Intra-Op documented in this encounter
--- OUTSIDE RECORDS SUMMARY | 2022-08-10 09:10 | XMS_ITS | Encounter Summary ---
:1950 Author Organization [facility] Address [address] [place] [address] Care Team Providers Name Role Phone Unavailable Primary Care Provider Unavailable Encounter Details Date Type Department Care Team Description 07/25/2020 Hospital Encounter Department of Ena Gilbert For Laboratory Medicine, S, M.D. Screening For Other [facility], in 2009 [facility] Viral Diseases [place], [place] (COVID-19) [address] [id number] [address] [place] [phone] [place], [place] (Work) [phone] Social History Tobacco Use [...] Associated Diagnosis Comme nts SARS CORONAVIRUS-2 Routine 07/25/2020 10:01 AM Encounter For R esults for this RNA, V CDT Screening For Other procedur e are in Viral Diseases the results (COVID-19) section. documented in this encounter Results SARS Coronavirus-2 RNA, V Asymptomatic (07/25/2020 10:01 AM CDT) [facility] Method Time Signature SARS-CoV-2 Swab, 07/25/2020 [facility] Specimen Nasopharynx 8:36 PM CDT Source SARS CoV-2 Undetected Undetected 07/25/2020 [facility] RNA, TMA 8:36 PM CDT Comment: SARS-CoV-2 RNA absent. This result does not rule out COVID-19 in the patient, as the sensitivity of the test depends o n the timing of the specimen collection and the quality of the specim en. Result should be correlated with patient's history and clinical presentat ion. ----ADDITIONAL INFORMATION---- This test is performed using the Aptima SARS-CoV-2 assay ([employer] which has received Emergency Use Authori zation (EUA) by the U.S. Food and Drug Administration. Fact sheets for this Emergency Use Autho rization (EUA) assay can be found at the following links: For Healthcare Providers: https://www.fd a.gov/media/726477/download For Patients: https://www.fda.gov/media/ 137262/download Specimen Anatomical Collection Method Collection Time Receive d Time (Source) Location / / Volume Laterality Varies 07/25/2020 10:01 07/25/2020 (Nasopharynx) AM CDT 12:23 PM CDT Ena Gilbert M.D. LAB MICROBIOLOGY - GENERAL O RDERABLES Performing Organization Address City/State/ZIP Code Phon e Number [facility] [address] [place] [id number] [place] [address] [address] documented in this encounter Visit Diagnoses Diagnosis Encounter For Screening For Other Viral Diseases (COVID-19) documented in this encounter Additional Health Concerns Infection Onset Date Last Indicated Resolved Time COVID19 Pending 07/25/2020 07/25/2020 07/25/2020 8:36 PM CDT documented as of this encounter
[2022-08-10 14:42] LABS: SARS PCR* Negative SARS-CoV-2 (Negative)
== END 2022-08-10 09:09 | disposition home or self-care (01) ==
LOC: LONREF 09:09
PROVIDERS: PCP Family Medicine; Visit Provider Family Medicine
DX: Z20.822 Contact with and (suspected) exposure to COVID-19 (principal); Z01.818 Encounter for other preprocedural examination
CPT/HCPCS: 87635

== ENCOUNTER 2022-08-12 06:21 | Outpatient (CLI) | payer MEDICARE, BC, SELFPAY | END 2022-08-12 06:22 | disposition home or self-care (01) | LOC: OP CLINIC 06:25 | PROVIDERS: PCP Family Medicine; Visit Provider Internal Medicine | DX: Z12.11 Encounter for screening for malignant neoplasm of colon (principal); K62.1 Rectal polyp; Z86.010 Personal history of colon polyps | CPT/HCPCS: 45380; 45385; J2250; J3010 ==

== ENCOUNTER 2023-06-15 07:37 | Outpatient (CLI) | payer MEDICARE, BC, SELFPAY | END 2023-06-15 07:38 | disposition home or self-care (01) | LOC: NFLDREF 06-17 13:12 | PROVIDERS: PCP Family Medicine; Referring Provider Family Medicine; Visit Provider Family Medicine | DX: Z00.00 Encounter for general adult medical examination without abnormal findings (principal); E78.5 Hyperlipidemia, unspecified; E78.1 Pure hyperglyceridemia; I10 Essential (primary) hypertension; F41.9 Anxiety disorder, unspecified; R73.09 Other abnormal glucose; Z12.5 Encounter for screening for malignant neoplasm of prostate | CPT/HCPCS: 80053; 80061; 84153 ==

== ENCOUNTER 2024-06-17 07:50 | Outpatient (CLI) | payer MEDICARE, BC, SELFPAY ==
--- OUTSIDE RECORDS SUMMARY | 2024-06-21 00:18 | XMS_ITS | Clinical Summary ---
Author Organization [facility] Address [place], [place] [address] Care Team Providers Care Dray Driver Name Role Phone Edgar Sr MD Primary Care Provider [phone] Allergies No known active allergies Medications Medication Sig Dispensed Refills Start Date End Date Status ZYMAR 0.3 % EYE DROPSIndications:Supe rficial injury of cornea 1 gtt to affected eye(s) qid x 1 week. 1 0 08/08/2006 Active Active Problems No known active problems Resolved Problems Problem Noted Date Diagnosed Date Resolved Date Foreign body in cornea 08/07/200608/08 Superficial injury of cornea 08/07/2006 05/21/2012 Immunizations Name Administration Dates Next Due Td (Age >=7 Years) 06/16/2005 Social History Tobacco Use Types Packs/Day Years Used Date Smoking Tobacco: Never Assessed Sex and Gender Information Value Date Recorded Sex Assigned at Not on file Gender Identity Not on file Sexual Orientation Not on file Plan of Treatment Health Maintenance Due Date Last Done Comments Tdap 1963 Depression screening for age 12+ 1964 BMI (ht and wt on same day) for age 18+ 1970 Hepatitis C screening for age 18-79 1970 Colonoscopy through age 75 1997 Zoster (shingles) series for age 50+ (1 of 2) 2002 Lipids for age 45-75 06/16/2010 06/16/2005, 12/08/19 04 Tetanus booster 06/16/2015 06/16/2005 Pneumococcal series for age 65+ (1 of 1 - PCV) 2017 COVID-19 vaccine series ( 2022-24 season) 2023 Influenza for age 65+ 2024 Procedures Procedure Name Priority Date/Time Associated Diagnosis Comments LIPID PANEL Timed 06/16/2005 9:28 AM CDT from Last 3 Months or Most Recently Relevant to Health Maintenance Results * (ABNORMAL) LIPID PANEL (06/16/2005 9:28 AM CDT) CHOLESTEROL,TOTAL 209(H) 110 - 199 mg/dL [facility] 107 40 - 149 mg/dL [facility] HDL CHOLESTEROL 52 >40 mg/dL [facility] CHOL/HDL RATIO 4.02 <4.51 [facility] LDL CHOLESTEROL 136(H) <131 mg/dL [facility] PATIENT STATUS Fasting [facility] 06/16/2005 9:28 AM CDT 06/16/2005 1:13 PM CDT Diaz Reaves DO CHEMISTRY [facility] INTERNAL ZIP [phone] [address] from Last 3 Months or Most Recently Relevant to Health Maintenance Care Teams Dray Driver Relationship Specialty Start Date End Date Edgar Sr MD PCP - General 03/12/10
== END 2024-06-17 07:51 | disposition home or self-care (01) ==
LOC: NFLDREF 06-21 00:16
PROVIDERS: PCP Family Medicine; Referring Provider Family Medicine; Visit Provider Family Medicine
DX: E78.5 Hyperlipidemia, unspecified (principal); I10 Essential (primary) hypertension; Z12.5 Encounter for screening for malignant neoplasm of prostate; E87.1 Hypo-osmolality and hyponatremia
CPT/HCPCS: 80053; 80061; G0103

== ENCOUNTER 2024-07-15 13:09 | Outpatient (CLI) | payer MEDICARE, BC, SELFPAY ==
--- OUTSIDE RECORDS SUMMARY | 2024-07-20 16:43 | XMS_ITS | Clinical Summary ---
Author Organization [employer] [facility] Address [place], [place] [address] Care Team Providers Care Supervisor Cemetery Workers Name Role Phone Edgar Sr MD Primary Care Provider [phone] Allergies No known active allergies Medications Medication [...] 2017 COVID-19 vaccine series ( 2022-24 season) 2024 Influenza for age 65+ 2024 Procedures Procedure Name Priority Date/Time Associated Diagnosis Comments LIPID PANEL Timed 06/16/2005 9:28 AM CDT from Last 3 Months or Most Recently Relevant to Health Maintenance Results * (ABNORMAL) LIPID PANEL (06/16/2005 9:28 AM CDT) CHOLESTEROL,TOTAL 209(H) 110 - 199 mg/dL [facility] TRIGLYCERIDES 107 40 - 149 mg/dL [facility] HDL CHOLESTEROL 52 >40 mg/dL [facility] CHOL/HDL RATIO 4.02 <4.51 [facility] LDL CHOLESTEROL 136(H) <131 mg/dL [facility] PATIENT STATUS Fasting [facility] 06/16/2005 9:28 AM CDT 06/16/2005 1:13 PM CDT Diaz Reaves DO CHEMISTRY [facility] INTERNAL ZIP [phone] [address] from Last 3 Months or Most Recently Relevant to Health Maintenance Care Teams Supervisor Cemetery Workers Relationship Specialty Start Date End Date Edgar Sr MD PCP - General 03/12/10
== END 2024-07-15 13:10 | disposition home or self-care (01) ==
LOC: NFLDREF 07-20 16:42
PROVIDERS: PCP Family Medicine; Referring Provider Family Medicine; Visit Provider Family Medicine
DX: I10 Essential (primary) hypertension (principal)
CPT/HCPCS: 80048

== ENCOUNTER 2024-08-08 08:17 | Outpatient (CLI) | payer MEDICARE, BC, SELFPAY | END 2024-08-08 08:18 | disposition home or self-care (01) | LOC: NFLDREF 08:17 | PROVIDERS: PCP Family Medicine; Visit Provider Family Medicine | DX: E87.1 Hypo-osmolality and hyponatremia (principal); I10 Essential (primary) hypertension | CPT/HCPCS: 80048 ==

== ENCOUNTER 2025-07-15 07:55 | Outpatient (CLI) | payer MEDICARE, BC, SELFPAY | END 2025-07-15 07:56 | disposition home or self-care (01) | LOC: NFLDREF 07-18 14:17 | PROVIDERS: PCP Family Medicine; Referring Provider Family Medicine; Visit Provider Family Medicine | DX: N40.0 Benign prostatic hyperplasia without lower urinary tract symptoms (principal); E78.5 Hyperlipidemia, unspecified; Z12.5 Encounter for screening for malignant neoplasm of prostate | CPT/HCPCS: 80053; 80061; G0103 ==